=== PATIENT | female | born 1965 | race Caucasian/White ===

== ENCOUNTER 2018-09-24 00:33 | Emergency (ER) | payer BC ==
[~2018-09-24] VITALS: Ht 162.6 cm; Wt 89.9 kg
--- NOTE | 2018-09-24 00:46 | NUR ---
UNABLE TO GET EKG. PATIENT STARTED TO CRY, AND WAS UNABLE TO HOLD STILL LONG ENOUGH TO COMPLETE EKG.
[2018-09-24] MEDS ORDERED: AMLO10TA8 PO (00:59)
[2018-09-24] MEDS ORDERED: HYDROmorphone 1 MG/ML, 1ML IM ONE (01:00)
[2018-09-24] MEDS ORDERED: KETOROLAC 30 MG/1 ML IM ONE (01:00)
--- NOTE | 2018-09-24 01:04 | NUR ---
PT STANDING AND SITTING IN ROOM, PAIN INCREASED WHEN LAYING DOWN. UNABLE TO GET UA AT THIS TIME.
[2018-09-24] MEDS ORDERED: KETOROLAC 30 MG/1 ML ONE (01:08)
[2018-09-24] MEDS ORDERED: HYDROmorphone 1 MG/ML, 1ML ONE (01:09)
[2018-09-24 01:39] LABS: MICROSCOPIC NOT IND
--- NOTE | 2018-09-24 01:40 | NUR ---
PAIN MEDICATION GIVEN IM BILATERAL DELTOID. EKG DONE NOW. PATIENT STATES PAIN IS BETTER. VSS
[2018-09-24 01:42] LABS: TROPONIN I < 0.015 ng/mL (0.000-0.045)
[2018-09-24 01:44] LABS: CULTURE INDICATED? NO
--- NOTE | 2018-09-24 02:10 | NUR ---
RESTING SUPINE ON GURNEY. VSS. PAIN 4/10 AND TOLERABLE FOR PT. UPDATED ON POC
[2018-09-24 02:11] LABS: BASOPHILS # (AUTO) 0.02 x10^3/uL (0-0.1); BASOPHILS % (AUTO) 0 % (0-1); EOSINOPHILS # (AUTO) 0.01 x10^3/uL (0-0.4); EOSINOPHILS % (AUTO) 0 % (1-7); LYMPHOCYTES # (AUTO) 1.98 x10^3/uL (1-3.4); LYMPHOCYTES % (AUTO) 25 % (22-44); MD NO; MEAN CORPUSCULAR HEMOGLOBIN 30.1 pg (27.0-34.8); MEAN CORPUSCULAR HGB CONC 34.6 g/dL (32.4-35.8); MEAN PLATELET VOLUME 7.8 fL (7.4-10.4); MONOCYTES # (AUTO) 0.45 x10^3/uL (0.2-0.8); MONOCYTES % (AUTO) 6 % (2-9); NEUTROPHILS # (AUTO) 5.47 x10^3/uL (1.8-6.8); NEUTROPHILS % (AUTO) 69 % (42-75); PLATELET COUNT 341 x10^3/uL (130-400); RED BLOOD COUNT 4.97 x10^6/uL (3.82-5.3); RED CELL DISTRIBUTION WIDTH 13.9 % (9.6-15.2)
--- NOTE | 2018-09-24 02:17 | NUR ---
PT TAKEN TO CT
[2018-09-24 02:24] LABS: ALANINE AMINOTRANSFERASE 56 U/L (12-78); ANION GAP 9 mmol/L (5-15); CALCIUM 8.8 mg/dL (8.5-10.1); CHLORIDE 110 mmol/L (98-107); CREATININE 1.05 mg/dL (0.55-1.02)
[2018-09-24 02:26] LABS: ALKALINE PHOSPHATASE 119 U/L (45-117); BILIRUBIN,TOTAL 0.4 mg/dL (0.2-1.0); TOTAL PROTEIN 7.5 g/dL (6.4-8.2)
--- NOTE | 2018-09-24 02:40 | NUR ---
BACK FROM CT
[2018-09-24 03:33] VITALS: BP 140/73
== END 2018-09-24 03:36 | disposition home or self-care (01) ==
LOC: ED 03:09
DX: N13.2 Hydronephrosis with renal and ureteral calculous obstruction (principal); R39.15 Urgency of urination; I10 Essential (primary) hypertension; Z90.49 Acquired absence of other specified parts of digestive tract
CPT/HCPCS: 36415; 74176; 80053; 81003; 83690; 84484; 85025; 93005; 96372; 99284; J1170; J1885

== ENCOUNTER 2020-05-03 23:38 | Emergency (ER) | payer BC, OTHER ==
[~2020-05-03] VITALS: Ht 162.6 cm; Wt 68.6 kg
[~2020-05-03 23:38] MED LIST: AMLO10TA8 PO
[2020-05-04] MEDS ORDERED: methylPREDNISolone SOD SUCC 125 MG/2 ML IVPush ONE
[2020-05-04] MEDS ORDERED: DIPHENHYDRAMINE 50 MG/ML, 1ML IVPush ONE
[2020-05-04] MEDS ORDERED: FAMOTIDINE 20 MG/2 ML IVPush ONE
[2020-05-04] MEDS ORDERED: DIPHENHYDRAMINE 50 MG/ML, 1ML ONE (00:10)
[2020-05-04] MEDS ORDERED: methylPREDNISolone SOD SUCC 125 MG/2 ML ONE (00:10)
[2020-05-04] MEDS ORDERED: FAMOTIDINE 20 MG/2 ML ONE (00:11)
--- NOTE | 2020-05-04 00:25 | NUR ---
first contact with pt, report from nick schwab. iv started, meds per order. pt placed on cont pulse ox rr equal and unlabored. hives over chest, arms. no sob
[2020-05-04 01:28] VITALS: BP 128/74
== END 2020-05-04 01:31 | disposition home or self-care (01) ==
LOC: ED 23:59
DX: T78.49XA Other allergy, initial encounter (principal); L50.0 Allergic urticaria; I10 Essential (primary) hypertension
CPT/HCPCS: 96374; 96375; 99284; J1200; J2930

== ENCOUNTER → 2020-07-12 | Outpatient (CLI) | payer OTHER ==
[~2020-07-12] MED LIST changes: +AMLO-211 PO; -AMLO10TA8 PO
== END | disposition home or self-care (01) ==
LOC: CFH 07:10
PROVIDERS: ATTEND Nurse Practitioner
DX: Z12.31 Encounter for screening mammogram for malignant neoplasm of breast (principal)
CPT/HCPCS: 77063; 77067

== ENCOUNTER 2021-02-19 18:42 | Emergency (ER) | payer OTHER ==
--- NOTE | 2021-02-19 18:56 | NUR ---
NOT IN LOBBY
== END 2021-02-19 19:05 | disposition left against medical advice (07) ==
LOC: ED 18:50
DX: R10.9 Unspecified abdominal pain (principal); Z53.21 Procedure and treatment not carried out due to patient leaving prior to being seen by health care provider

== ENCOUNTER 2021-02-20 07:35 | Emergency (ER) | payer OTHER ==
[~2021-02-20] VITALS: Ht 162.6 cm; Wt 90.4 kg
[2021-02-20] MEDS ORDERED: SODIUM CHLORIDE 0.9% 1,000ML IVBOLUS ONE (08:30)
[2021-02-20] MEDS ORDERED: SODIUM CHLORIDE FLUSH 10ML SYR IVF ONE (08:30)
[2021-02-20 08:43] LABS: BASOPHILS % (AUTO) 1 % (0-1); EOSINOPHILS % (AUTO) 0 % (1-7); LYMPHOCYTES % (AUTO) 42 % (22-44); MEAN CORPUSCULAR HEMOGLOBIN 29.4 pg (27.0-34.8); MEAN CORPUSCULAR HGB CONC 33.8 g/dL (32.4-35.8); MEAN PLATELET VOLUME 7.9 fL (7.4-10.4); MONOCYTES % (AUTO) 7 % (2-9); NEUTROPHILS % (AUTO) 49 % (42-75); PLATELET COUNT 311 x10^3/uL (130-400); RED BLOOD COUNT 4.83 x10^6/uL (3.82-5.3); RED CELL DISTRIBUTION WIDTH 14.3 % (9.6-15.2)
[2021-02-20 08:48] LABS: ALANINE AMINOTRANSFERASE 47 U/L (12-78); ALBUMIN 3.3 g/dL (3.4-5.0); ANION GAP 7 mmol/L (5-15); CALCIUM 9.2 mg/dL (8.5-10.1); CHLORIDE 109 mmol/L (98-107); CREATININE 0.87 mg/dL (0.55-1.02)
[2021-02-20 08:50] LABS: ALKALINE PHOSPHATASE 96 U/L (45-117); BILIRUBIN,TOTAL 0.5 mg/dL (0.2-1.0); TOTAL PROTEIN 7.1 g/dL (6.4-8.2)
--- NOTE | 2021-02-20 09:30 | NUR ---
PT IN HOSPITAL GOWN, ON VITALS MONITORS. PT UP AT THIS TIME AMBULATING STEADILY IN HALLWAY TO BATHROOM FOR URINE SAMPLE.
--- NOTE | 2021-02-20 10:10 | NUR ---
PT HAS BEEN POKED X3 FOR IV. UNABLE TO PLACE IV, PT NOW REFUSING PLACEMENT. ERP AWARE. AWAITING UA RESULTS.
[2021-02-20 10:21] LABS: MICROSCOPIC NOT IND
[2021-02-20 12:12] VITALS: BP 127/59
== END 2021-02-20 12:14 | disposition home or self-care (01) ==
LOC: ED 08:50
DX: R10.11 Right upper quadrant pain (principal); R10.12 Left upper quadrant pain; I10 Essential (primary) hypertension; Z90.49 Acquired absence of other specified parts of digestive tract
CPT/HCPCS: 36415; 74176; 80053; 81003; 83690; 85025; 99284